=== PATIENT | female | born 1975 | race Caucasian/White ===

== ENCOUNTER 2019-03-03 13:45 | Inpatient (IN) ==
[2019-03-03] MEDS ORDERED: MORPHINE IV ONE (14:40)
[2019-03-03] MEDS ORDERED: ZOFRAN IV ONE (14:41)
[2019-03-03 15:16] LABS: BASO# 0.02 X1000 (0.0-0.2); BASO% 0.1 % (0.0-0.8); EOS# 0.07 X1000 (0.0-0.7); EOS% 0.5 % (0.0-10.0); HEMATOCRIT 45.3 % (37.0-47.0); HEMOGLOBIN 15.6 g/dL (12.0-16.0); IMM GRAN# 0.03 X1000 (0.0-0.04); IMM GRAN% 0.2 % (0.0-0.5); LYMPH# 1.48 X1000 (1.2-3.4); LYMPH% 10.4 % (20.5-51.1); MCH 30.1 PG (27-31); MCHC 34.4 g/dL (33-37); MCV 87.5 FL (81-99); MONO# 0.83 X1000 (0.11-0.59); MONO% 5.8 % (1.7-9.3); MPV 8.7 FL (7.4-10.4); NEUT# 11.85 X1000 (1.4-6.5); PLT 336 X1000 (130-400); RBC 5.18 XMIL (4.2-5.4); RDW 11.9 % (11.5-14.5); WBC 14.28 X1000 (4.8-10.8)
[2019-03-03 15:18] LABS: AGAP 12; ALB/GLOB RATIO 1.6; ALBUMIN 4.8 g/dL (3.5-5.0); ALKALINE PHOSPHATASE 54 U/L (32-104); AMYLASE 94 U/L (20-200); BUN 9 mg/dL (8-22); CALCIUM 9.7 mg/dL (8.8-10.2); CHLORIDE 95 mmol/L (98-107); COSMO 265; CREATININE 0.8 mg/dL (0.5-0.9); ESTIMATED GFR > 60; GLUCOSE 106 mg/dL (70-104); GOT 19 U/L (10-30); GPT 10 U/L (10-36); LIPASE 27 U/L (13-60); POTASSIUM 3.8 mmol/L (3.5-5.1); SODIUM 133 mmol/L (136-145); TCO2 26 mmol/L (25-35); TOTAL BILIRUBIN 0.58 mg/dL (0.20-1.00); TOTAL PROTEIN 7.8 g/dL (6.3-8.3)
--- NOTE | 2019-03-03 15:41 | EKG Report ---
Test Performed on : 03/03/2019 3:07:46 PM Test Reason : AO Blood Pressure : / mmHG Vent. Rate : 067 BPM Atrial Rate : 067 BPM P-R Int : 152 ms QRS Dur : 082 ms QT Int : 408 ms P-R-T Axes : -07 078 060 degrees QTc Int : 431 ms Normal sinus rhythm. T wave abnormality, consider anterior ischemia Abnormal ECG No previous ECGs available Unconfirmed Result
--- NOTE | 2019-03-03 15:48 | Diag Imaging Result Doc PS360 ---
EXAM: FLAT/UPRIGHT ABD/1 VIEW CHEST HISTORY: LLQ abd pain TECHNIQUE: Flat and upright with chest, three views COMPARISON: None. FINDINGS: The lungs are well expanded. No cardiomegaly. No pneumonia. No free air beneath the diaphragm. There are air distended loops of small bowel in the mid abdomen. Stool is found in the colon. There are surgical clips overlying the right sacrum and in the right upper quadrant. There are multiple pelvic phleboliths. IMPRESSION: Early or partial small bowel obstruction. Electronically signed by Crispin Georges 03/03/2019 3:46 PM
[2019-03-03] MEDS ORDERED: NS 1,000 ML IV ONE (16:00)
[2019-03-03] MEDS ORDERED: ZOSYN 4.5 GM in NS 100 ML IV ONE (16:12)
--- NOTE | 2019-03-03 16:35 | Diag Imaging Result Doc PS360 ---
EXAM: CT ABD/PELVIS W/IV CONT ONLY HISTORY: partial SBO, abdominal pain TECHNIQUE: CT abdomen and pelvis with intravenous contrast COMPARISON: None. FINDINGS: No calcified gallstones. There is fatty infiltration of the liver and there are several scattered tiny cysts. A tiny amount of fluid is found about the liver with a small amount of the right paracolic gutter. There is also small amount of fluid about the spleen. Spleen is normal. Normal pancreas, adrenal glands, and kidneys. No hydronephrosis. Normal aorta. There are several air and fluid overly distended loops of small bowel in the mid and lower left abdomen. There is wall thickening to several of the distal distended bowel loops. Transition appears to be in the mid pelvis near sutures. Air and stool is found throughout the colon. There is free fluid in the pelvis. No abscess. Urinary bladder is not distended. The uterus is been removed. There are scattered pelvic phleboliths. IMPRESSION: Small bowel obstruction with enteritis with the transition appearing to be near sutures in the mid pelvis. This exam was performed using automated exposure control, adjustment of mA or kV according to patient size, and/or use of iterative reconstruction technique. Electronically signed by Crispin Georges 03/03/2019 4:33 PM
[2019-03-03] MEDS ORDERED: LEVAQUIN 500 MG in NS 100 ML IV SCH (18:15)
[2019-03-03] MEDS: DILAUDID IV PRN ×2 (18:20→21:23)
[2019-03-03 18:38] LABS: URINE SOURCE CATH
[2019-03-03 18:48] LABS: BILIRUBIN URINE NEGATIVE (NEGATIVE); BLOOD URINE NEGATIVE (NEGATIVE); COLOR YELLOW; GLUCOSE URINE NEGATIVE (NEGATIVE); LEUKOCYTES URINE NEGATIVE (NEGATIVE); NITRITE URINE NEGATIVE (NEGATIVE); PROTEIN URINE TRACE mg/dL (NEGATIVE); TURBIDITY URINE CLEAR (CLEAR); UROBILINOGEN URINE NORMAL (NORMAL)
[2019-03-03 18:55] LABS: KETONE URINE 20 mg/dL (NEGATIVE); UR EPITHELIAL CELLS <10 /HPF (<10); URINE BACTERIA NEGATIVE /HPF; URINE RBC <10 /HPF (<10); URINE WBC <10 /HPF (<10)
--- NOTE | 2019-03-03 18:58 | Diag Imaging Result Doc PS360 ---
EXAM: CHEST/ABD TUBE PLACEMENT HISTORY: ng tube placement TECHNIQUE: Chest abdomen single view COMPARISON: 3:36 PM FINDINGS: A nasogastric tube has been placed since the prior study. This overlies the esophagus and stomach. Electronically signed by Crispin Georges 03/03/2019 6:56 PM
--- NOTE | 2019-03-03 19:11 | HISTORY AND PHYSICAL ---
CHIEF COMPLAINT: Left lower quadrant pain with nausea and vomiting. HISTORY OF PRESENT ILLNESS: This is a 43-year-old female with a history of prior abdominal surgeries, who presents to the emergency room complaining of about 24 hours of left lower quadrant pain with nausea, vomiting and headache. She states that symptoms have increased over this time. She has found no alleviating factors. She states that everything exacerbates it. She rates her pain as a cramping-type pain. She rates it at 10/10 at its worst. She denies any black or bloody vomitus or stools. PAST MEDICAL HISTORY: Denies. PAST SURGICAL HISTORY: Appendectomy, hysterectomy, tonsillectomy, lysis of adhesions. SOCIAL HISTORY: She smokes 1 or 2 cigarettes a day. She denies any illicit drug use. She does drink alcohol occasionally on a social basis. ALLERGIES: No known drug allergies. HOME MEDICATIONS: 1. Estradiol 2 mg 1 p.o. daily. 2. Ambien 12.5 at bedtime p.r.n. REVIEW OF SYSTEMS: Discussed with the patient, with pertinent positives stated in the HPI. She denied any syncope, dizziness, chest pain, palpitations, any shortness of breath, any black or bloody vomitus or stools, hematuria, dysuria, frequency or urgency. PHYSICAL EXAMINATION: GENERAL: This is a 43-year-old female who is lying in the bed in mild distress. VITAL SIGNS: Heart rate is 91, respirations are 20, O2 saturations are 99% with temperature 97.8 degrees oral. EYES: Pupils are equal, round, react to light. EOMs are intact. Sclerae anicteric. HEENT: Head is normocephalic, atraumatic. Mucous membranes are dry. NECK: Supple. Trachea midline. CARDIOVASCULAR: Regular rate and rhythm. S1 and S2 appreciated. She has no lower extremity edema. PULMONARY: Breath sounds are clear, with no increased work of breathing noted. GASTROINTESTINAL: Abdomen is soft. Tender to palpation generally, with worse in left lower quadrant and suprapubic area. She does have bowel sounds in all 4 quadrants. SKIN: Warm and dry. NEUROLOGIC: She is alert and oriented. LABORATORY DATA: WBC is 14.2 with a hemoglobin of 15.6, hematocrit 45.3, platelets 336,000. Sodium 133, potassium 3.8, BUN 9, creatinine 0.8 with glucose of 106. Catheterized urine is pending. DIAGNOSTIC DATA: CT of the abdomen and pelvis revealed small-bowel obstruction with enteritis, with a transition appearing to be near sutures in the mid pelvis. ASSESSMENT AND PLAN: 1. Small-bowel obstruction. Nasogastric tube to low intermittent wall suction. she will remain NPO. flat and upright in the morning. Dr. Mateo Amos in General Surgery has been consulted. 2. Enteritis. Flagyl 500 mg intravenously q.6 hours as well as Levaquin 500 q.24. 3. Leukocytosis. Antibiotics as stated above. 4. Hyponatremia. Sodium is 133. Continue intravenous hydration and recheck labs in the morning. 5. Abdominal pain. Dilaudid 1 mg q. 3 hours p.r.n. and assess. 6. Nausea. Zofran. 7. For gastrointestinal prophylaxis, Protonix 40 mg intravenously q.12 hours. 8. For deep venous thrombosis prophylaxis, sequential compression devices. Further treatments pending hospital course. Dictated by CRISTHIAN Church for Venessa Zhu MD cc: CRISTHIAN Church MD I performed a face to face encounter on the patient. I reviewed all labs and imaging on the patient. I agree with the H&P as dictated. presented to the ER with a chief complaint of persistent colicky abdominal pain associated with nausea and vomiting. A CT of the abdomen and pelvis was done that revealed a small bowel obstruction. On exam, the patient has hypoactive bowel sounds with diffuse tenderness in all quadrants. The patient has been seen by in the ER already. Will admit the patient and start NG tube decompression. Will start IV fluid hydration, antiemetics and pain medication. Further plans to be determined by the general surgeon. MANDY
--- NOTE | 2019-03-03 19:55 | GENERAL SURGERY CONSULTATION ---
DATE: 03/03/2019 REQUESTING PHYSICIAN: Venessa Zhu MD. REASON FOR CONSULTATION: Small-bowel obstruction. HISTORY OF PRESENT ILLNESS: A 43-year-old female who initially presented with left lower quadrant pain with nausea, vomiting, and headache starting yesterday. Upon further questioning, she has had issues with her bowels moving for some time and has had previous colonoscopy that did not show anything obvious. She has had issues with chronic constipation and abdominal pain for some time. She says it all kind of started after she had a hysterectomy in [place] and then developed a small-bowel obstruction and subsequently has had lysis of adhesions after that. Again, she is coming in with a less than a 24-hour history of [id number] pain. She had a CT scan that showed thickened bowel and a bowel obstruction, and I was asked to weigh an opinion. PAST MEDICAL HISTORY: None. PAST SURGICAL HISTORY: Includes appendectomy, hysterectomy, tonsillectomy. HOME MEDICATIONS: Include estrogen and portion of Ambien. FAMILY HISTORY: Reviewed with the patient and no family history of Crohn's or ulcerative colitis. SOCIAL HISTORY: Current smoker. Does occasional alcohol. ALLERGIES: None. REVIEW OF SYSTEMS: A full 10-point review of systems obtained and negative other than as specified in HPI. PHYSICAL EXAMINATION: Vital Signs: The patient is currently afebrile. Most recent temperature is 98 degrees, blood pressure 158/105, pulse 76. General: Appears uncomfortable. female looks stated age. HEENT: Normocephalic, atraumatic. Pupils equal, round, reactive to light. Mucous membranes moist. Oropharynx benign. Neck: Supple. Trachea midline. Cardiovascular: Regular rate and rhythm. Lungs: Grossly clear. Abdomen: Soft. Some discomfort down in the left lower quadrant but no peritoneal signs at this time. The abdomen is nondistended. Extremities: Moves all extremities. Neurologic: Grossly intact. Skin: No signs of jaundice. Vascular: All extremities perfused. LABORATORY: White blood cell count is 14 with a left shift. Hematocrit and platelet count are normal. Sodium is 133. Remainder of labs reviewed. IMAGING STUDIES: CT scan independently reviewed and radiology report reviewed. She does have what appears to be a small-bowel obstruction. The transition point down the pelvis may be near a suture line. ASSESSMENT AND PLAN: A 43-year-old female with bowel obstruction. Bowel obstruction. At this time, could be related to adhesions versus suture line down in the pelvis. She does give a history of having recurrent bowel obstructions that maybe had not gotten to the point where she needed admission. Agree right now with NG tube, decompression, and bowel rest. She may ultimately require diagnostic laparoscopy versus exploratory laparotomy, given the findings and her chronic symptoms. We will try to get her through the evening. The hospitalists are going to admit. cc: Bulmaro Amos MD
[2019-03-03] MEDS: FLAGYL 500 MG/NS 500 MG/100 ML IVPB IV SCH (20:11)
[2019-03-03] MEDS: NS 1,000 ML IV SCH (20:11)
[2019-03-03] MEDS: ZOFRAN IV PRN (21:32)
[2019-03-03] MEDS: LEVAQUIN 500 MG/D5W 500 MG/100 ML IVPB IV SCH (21:53)
--- NOTE | 2019-03-04 00:41 | PROVIDER DOCUMENTATION ---
This chart was entered by Helen Shi Scribe, acting as scribe for Ana María Blakely MD. HPI-Abdominal Pain/GI Problem - General Chief Complaint: Abdominal Pain Stated Complaint: GASTRO PAIN Time Seen by Provider: 03/03/19 14:30 Source: patient Allergies/Adverse Reactions: Patient Allergies Allergy/AdvReac Type Severity Reaction Status Date / Time No Known Allergies Allergy Verified 03/03/19 14:50 Home Medications: Home Medication List Medication Instructions Recorded Confirmed Last Taken Type Estradiol 2 mg PO QHS 03/03/19 03/03/19 03/02/19 History Zolpidem Tartrate [Zolpidem 3.1 mg PO QHS 03/03/19 03/03/19 03/02/19 History Tartrate ER] - History of Present Illness-ABD Nature of Presenting Problems: Patient is a 43 year old female who presents for LLQ and epigastric abdominal pain with nausea and vomiting that has been present since yesterday. Report last bowel movement was yesterday. Does not report diarrhea or fever. Abdominal Pain Onset Location: reports: LLQ, epigastric Pain Radiation: reports: no radiation Quality of Pain: reports: aching Severity in ED: reports: moderate, severe Onset/Duration: reports: 24 hours ago Timing: reports: still present Activities at Onset: reports: light activity Modifying Factors: improves with: nothing Associated Symptoms: reports: nausea, vomiting Last BM: 24 hours ago Dark Stools Present?: reports: none noticed Rectal Bleeding: reports: none Rectal Pain: reports: none Bruising or Bleeding Gums?: No Similar Symptoms Previously?: Yes (present since yesterday) Recently seen or treated by another doctor?: No Review of Systems - Adult - REVIEW OF SYSTEMS - ADULT Constitutional: reports: no symptoms reported. denies: chills, fever, fatique Eyes: reports: no symptoms reported Ears, Nose, Mouth & Throat: reports: no symptoms reported Cardiovascular: reports: no symptoms reported Respiratory: reports: no symptoms reported Gastrointestinal: reports: see HPI, abdominal pain (LLQ and epigastric), nausea, vomiting. denies: diarrhea Genitourinary: reports: no symptoms reported Musculoskeletal: reports: no symptoms reported. denies: back pain, muscle aches, neck pain Integumentary: reports: no symptoms reported Neurological: reports: no symptoms reported Psychiatric: reports: no symptoms reported Endocrine: reports: no symptoms reported Hematologic/Lymphatic: reports: no symptoms reported Allergic/Immunologic: reports: no symptoms reported All Other Systems: Reviewed and Negative Past History - Adult - PAST MEDICAL HISTORY-ADULT Review of Records: reports: Nursing Assessment Review, Medications Reviewed, Social history reviewed & non-contributory. Major Childhood Illnesses: reports: denies history Cardiovascular: reports: denies history Respiratory: reports: denies history Gastrointestinal: reports: denies history Obstetrical/Gynecological: reports: denies history Genitourinary: reports: denies history Musculoskeletal: reports: denies history Neurological: reports: denies history Endocrine/Immune: reports: denies history Other Conditions: reports: denies history - PRIOR SURGERIES/PROCEDURES Surgical/Procedure History: reports: appendectomy, hysterectomy, tonsillectomy - IMMUNIZATION STATUS Childhood Immunizations: See Nurse Assessment Flu Vaccine: See Nurse Assessment - FAMILY HISTORY Family History: reviewed, not pertinent - SOCIAL HISTORY Smoking: cigarettes, less than 1 pack/day Provider spent 3-5 mins advising pt. on dangers of tobacco.: Discussed manners to quit use, and f/u contacts for add'l counseling. Substance Use: alcohol Alcohol Use Frequency: occasionally Physical Exam-General - PHYSICAL EXAM-ADULT Initial Vital Signs Reviewed: Yes - CONSTITUTIONAL General Appearance: alert, mild distress, other (lying on the left side). negative: lethargic, slow to respond - EYES Eyes: PERRL/EOMI - HEAD, EARS, NOSE, MOUTH & THROAT HENMT: moist mucous membranes, normal ENT inspection. negative: angioedema, hearing deficit - NECK Neck: non-tender, full range of motion, supple - RESPIRATORY Respiratory: chest non-tender, lungs clear, normal breath sounds. negative: crackles, rhonchi - CARDIOVASCULAR Cardiovascular: normal peripheral pulses, regular rate, rhythm. negative: tac hycardia, systolic murmur - GASTROINTESTINAL (ABDOMEN) Abdominal Exam: normal bowel sounds, guarding (mild), tenderness (LLQ). negative: rebound - MUSCULOSKELETAL Back Exam: no CVA tenderness, no vertebral tenderness Extremity: non-tender, normal inspection. negative: deformity, erythema, swelling - SKIN Integumentary: normal color, normal turgor, warm/dry. negative: cyanosis, ecchymosis, erythema, jaundice - NEUROLOGIC Neurologic: grossly normal. negative: aphasia, facial droop - PSYCHIATRIC Psych/Mental Status: oriented x 3. negative: paranoid Progress - PLAN OF CARE/RESULTS Progress/Plan/Lab Results: Vital Signs - 8 hr 03/03/19 13:51 Temperature 97.8 F Pulse Rate 91 H Respiratory Rate 20 O2 Sat by Pulse Oximetry 99 Orders Category Date Time Status NPO Diet 03/04/19 00:01 Active FLAT/UPRIGHT ABD/1 VIEW CHEST [RAD] Stat Exams 03/03/19 14:42 Ordered AMYLASE [CHEM] Stat Lab 03/03/19 14:41 Uncollected CBC WITH ELECTRONIC DIFF [HEME] Stat Lab 03/03/19 14:41 Uncollected CMP [COMPREHENSIVE METABOLIC PANEL] [CHEM] Stat Lab 03/03/19 14:41 Uncollected LIPASE [CHEM] Stat Lab 03/03/19 14:41 Uncollected Morphine Med 03/03/19 14:40 Discontinued 6 mg IV NOW ONE Ondansetron [Zofran] Med 03/03/19 14:41 Discontinued 8 mg IV NOW ONE EKG [EKG] Stat Ther 03/03/19 14:43 Ordered Result Diagrams: 03/03/19 14:57 03/03/19 14:57 - REASSESSMENT Reassessment #1 Time Reassessed: 16:40 Status: improving (feel better, less abd oain and nausea. abdomina exam slight tenderness LLQ) - EKG 1 Time of EKG reading by physician:: 15:07 EKG Read and Signed by:: Ana María Salas EKG Interpretation (*Must complete 3 of following elements*): Abnormal Rate: 67 Rhythm: normal sinus rhythm FL Interval: normal Comments: T wave abnormality, consider anterior ischemia - XRAY 1 XRAY Study: Chest, Abdomen Impression: See EMR Report ( EXAM: FLAT/UPRIGHT ABD/1 VIEW CHEST HISTORY: LLQ abd pain TECHNIQUE: Flat and upright with chest, three views COMPARISON: None. FINDINGS: The lungs are well expanded. No cardiomegaly. No pneumonia. No free air beneath the diaphragm. There are air distended loops of small bowel in the mid abdomen. Stool is found in the colon. There are surgical clips overlying the right sacrum and in the right upper quadrant. There are multiple pelvic phleboliths. IMPRESSION: Early or partial small bowel obstruction. Electronically signed by Crispin Georges 03/03/2019 3:46 PM 03/03/19 1546 Interpreting Physician: Crispin Georges MD Dictated Date/Time: 03/03/19 1540 cc: Ana María Salas MD; Lázaro Roth MD) - CT/MRI 1 CT Study: Abdomen ( FINDINGS: No calcified gallstones. There is fatty infiltrat ion of the liver and there are several scattered tiny cysts. A tiny amount of fluid is found about the liver with a small amount of the right paracolic gutter. There is also small amount of fluid about the spleen. Spleen is normal. Normal pancreas, adrenal glands, and kidneys. No hydronephrosis. Normal aorta. There are several air and fluid overly distended loops of small bowel in the mid and lower left abdomen. There is wall thickening to several of the distal distended bowel loops. Transition appears to be in the mid pelvis near sutures. Air and stool is found throughout the colon. There is free fluid in the pelvis. No abscess. Urinary bladder is not distended. The uterus is been removed. There are scattered pelvic phleboliths. IMPRESSION: Small bowel obstruction with enteritis with the transition appearing to be near sutures in the mid pelvis.) - CONSULTS/PCP/HOSPITALIST Notification #1 *Consult/PCP/Hospitalist*: Dr. Amos Time Discussed: 16:55 Consult Disposition: Admit (NGT suction, fluid and admit to hospitalist.) #2 Consult: GINETTE Bernabe admitting for Dr. Crowe Time Discussed: 16:57 Consult Disposition: Admit (Hx , PE and patient care disucssed, accepted.) Departure - Departure Date of Disposition Decision: 03/03/19 Time of Disposition Decision: 16:57 DIAGNOSIS: Small bowel obstruction, Enteritis Disposition: ADMITTED INPATIENT 09 Certified Medical Emergency: Emergent Condition: Serious - Critical Care Note This patient required my direct & personal management of CC.: No Attestation - Physician/ ANDI Attestation Patient care was provided by Advanced Practice Provider:: No The physician spent face to face time with patient:: Yes Advanced Practice Provider documentation review:: Supervising physician onsite and consulted in the evaluation and care of this patient. The physician did have a face to face encounter with the patient. This chart was documented by the indicated herlinda, (Helen Shi, Herlinda) and accurately reflects the services I performed and decisions made by me, Ana María Blakely MD, as attested by the provider's signature.
[2019-03-04] MEDS: DILAUDID IV PRN ×7 (01:09→23:34)
[2019-03-04] MEDS: ZOFRAN IV PRN ×5 (01:09→20:26)
[2019-03-04] MEDS: FLAGYL 500 MG/NS 500 MG/100 ML IVPB IV SCH ×4 (02:25→20:26)
[2019-03-04] MEDS: PROTONIX IV SCH ×2 (06:07→18:23)
[2019-03-04 06:54] LABS: HEMATOCRIT 38.2 % (37.0-47.0); HEMOGLOBIN 12.6 g/dL (12.0-16.0); MCH 30.4 PG (27-31); MPV 8.7 FL (7.4-10.4); RBC 4.15 XMIL (4.2-5.4); RDW 12.2 % (11.5-14.5); WBC 9.31 X1000 (4.8-10.8)
[2019-03-04 07:19] LABS: AGAP 12; ALB/GLOB RATIO 1.7; ALBUMIN 3.9 g/dL (3.5-5.0); ALKALINE PHOSPHATASE 43 U/L (32-104); BUN 11 mg/dL (8-22); CALCIUM 8.2 mg/dL (8.8-10.2); CHLORIDE 107 mmol/L (98-107); COSMO 284; CREATININE 0.8 mg/dL (0.5-0.9); ESTIMATED GFR > 60; GLUCOSE 97 mg/dL (70-104); GOT 14 U/L (10-30); GPT 9 U/L (10-36); PHOSPHORUS 3.6 mg/dL (2.7-4.5); POTASSIUM 3.7 mmol/L (3.5-5.1); SODIUM 143 mmol/L (136-145); TCO2 24 mmol/L (25-35); TOTAL BILIRUBIN 0.53 mg/dL (0.20-1.00); TOTAL PROTEIN 6.2 g/dL (6.3-8.3)
--- NOTE | 2019-03-04 07:23 | GENERAL SURGERY PROGRESS NOTE ---
DATE: 03/04/2019 SUBJECTIVE: Patient is still having some discomfort. She wants to proceed with surgery. She has had issues with this in the past. OBJECTIVE: Vital Signs: Patient is currently afebrile. Her vital signs stable. General: No acute distress. HEENT: Normocephalic, atraumatic. Pupils equal, round, reactive to light. Mucous membranes moist. Oropharynx benign. Neck: Supple. Trachea midline. Cardiovascular: Regular rate and rhythm. Lungs: Grossly clear. Abdomen: Soft. Some tenderness to palpation in bilateral lower quadrants. Extremities: Moves all extremities. Neurologic: Grossly intact. Skin: No signs of jaundice. Vascular: All extremities perfused. LABORATORY: None this morning as of yet. ASSESSMENT AND PLAN: A 43-year-old female with recurrent bowel obstruction. Recurrent bowel obstruction. At this time, she has a history of having bowel obstructions that have not been enough to get her admitted, but she has had issues with it, she has had pain. I reviewed the CT scan with the radiologist and there appears to be a foreign body, may be a suture line or a staple line that might be causing the obstruction. I do not think this is going to improve on its own. There is some concern about the thickness and inflammation of the bowel. We will plan on surgical intervention. The patient wants to go with the route of surgery. Discussed with her the risks, benefits, alternatives. Risks including, but not limited to, bleeding, infection, risk of anesthesia, risk of injury to bowel and other structures. She voiced understanding. Also discussed that when we do an operation for bowel obstructions for adhesions that she is likely to form adhesions afterwards. She voiced understanding with this. We will plan on doing this surgery this afternoon. cc: Bulmaro Amos MD
--- NOTE | 2019-03-04 07:41 | Diag Imaging Result Doc PS360 ---
EXAM: ABDOMEN FLAT/UPRIGHT HISTORY: small bowel obstruction TECHNIQUE: Flat and upright, two views COMPARISON: 03/03/2019 FINDINGS: The lungs are well expanded and clear. A nasogastric tube overlies the esophagus and stomach. No free air beneath the diaphragm. There are air distended small bowel loops in the left abdomen which remain. Stool is found in the proximal colon. No organomegaly. There are surgical clips in the right pelvis. There are several pelvic phleboliths. IMPRESSION: Persistent small bowel obstruction. Electronically signed by Crispin Georges 03/04/2019 7:38 AM
[2019-03-04] MEDS ORDERED: SENSORCAINE-MPF 0.5%/EPI 1:200,000 ONE (12:32)
[2019-03-04] MEDS ORDERED: LR 1,000 ML ONE (12:32)
[2019-03-04] MEDS ORDERED: DIPRIVAN 1% ONE (12:34)
[2019-03-04] MEDS ORDERED: XYLOCAINE-MPF 2% ONE (13:02)
[2019-03-04] MEDS ORDERED: QUELICIN (DOSE) ONE (13:02)
[2019-03-04] MEDS ORDERED: ZEMURON ONE (13:02)
[2019-03-04] MEDS ORDERED: TORADOL ONE (13:16)
[2019-03-04] MEDS ORDERED: ZOFRAN ONE (13:16)
[2019-03-04] MEDS ORDERED: DECADRON ONE (13:16)
[2019-03-04 13:52] LABS: URINE SOURCE CATH
[2019-03-04] MEDS ORDERED: EXPAREL 1.3% ONE (13:56)
[2019-03-04] MEDS ORDERED: MARCAINE 0.25% ONE (13:56)
[2019-03-04] MEDS ORDERED: OFIRMEV 1000 MG/ISOTONIC SOLN 1,000 MG/100 ML BOTTLE ONE (14:00)
[2019-03-04 14:02] LABS: BILIRUBIN URINE NEGATIVE (NEGATIVE); BLOOD URINE TRACE (NEGATIVE); COLOR YELLOW; GLUCOSE URINE NEGATIVE (NEGATIVE); KETONE URINE 100 mg/dL (NEGATIVE); LEUKOCYTES URINE NEGATIVE (NEGATIVE); NITRITE URINE NEGATIVE (NEGATIVE); PH URINE 5.5; PROTEIN URINE TRACE mg/dL (NEGATIVE); SP GRAVITY URINE 1.027; TURBIDITY URINE CLEAR (CLEAR); UR EPITHELIAL CELLS <10 /HPF (<10); URINE BACTERIA NEGATIVE /HPF; URINE RBC <10 /HPF (<10); URINE WBC <10 /HPF (<10); UROBILINOGEN URINE NORMAL (NORMAL)
[2019-03-04] MEDS: DILAUDID ONE ×3 (14:32→14:47)
--- NOTE | 2019-03-04 14:49 | OPERATIVE NOTE ---
PROCEDURE DATE: 03/04/2019 PREOPERATIVE DIAGNOSIS: Small-bowel obstruction. POSTOPERATIVE DIAGNOSIS: Small-bowel obstruction. PROCEDURE PERFORMED: 1. Diagnostic laparoscopy converted to exploratory laparotomy. 2. Lysis of adhesions. SURGEON: Bulmaro Amos MD. BUSINESS ACCOUNT MANAGER: Dr. Weber. Dr. Weber assisted with the entirety of the case. His presence was crucial to completion of the case. ANESTHESIA: General endotracheal. INTRAOPERATIVE FINDINGS: Adhesion noted from previous surgeries with adhesion up to the abdominal wall and an area of fibrotic band across the bowel causing an obstruction and transition point. COMPLICATIONS: None at the time of this dictation. ESTIMATED BLOOD LOSS: 20 mL. SPECIMENS REMOVED: None. BRIEF HISTORY: A 43-year-old female presenting with a bowel obstruction. She had thickened bowel, concerning for an enteritis-like picture. It was felt that she would benefit from an exploratory laparotomy and diagnostic laparoscopy. The risks, benefits, and alternatives were discussed. All questions were answered. DESCRIPTION OF PROCEDURE: After informed consent was obtained, the patient was brought to the operative theatre, transferred to the operating table, and placed in the supine position. General endotracheal anesthesia was then performed without complication. A formal time-out was then performed, confirming patient, date, and procedure. All were in agreement. At that time, attention was given to the abdomen. We placed our first trocar supraumbilically. Using the Optiview technique, we inserted a 5 mm trocar. We then placed two 5 mm trocars 10 cm lateral to this, just above the level of the umbilicus. Upon entering the abdomen, we found a bowel obstruction. There was also an adhesion noted to the abdominal wall, which we took down sharply. We ran the small bowel from the ligament of Treitz to the ileocecal valve. There was an area that looked somewhat questionable in the abdomen. To be able to get a better view of how it felt, we decided to make a midline incision. We therefore converted to an exploratory laparotomy and made a midline incision, eviscerated the bowel, ran it again from the ileocecal valve to the ligament of Treitz. We found an area just where we took down the adhesion that had a fibrotic band, which we removed. We were able to milk the succus through this area without any difficulty, but this was a transition point. We saw no other pathology. There were no intraluminal masses that we could appreciate. We then irrigated out the abdomen, closed it with the peritoneum with chromic and the fascia with a running loop PDS. We then closed the skin with 4-0 Monocryl. The patient tolerated the procedure well and was transferred back to the recovery room. It should be noted that we confirmed the NG tube in the stomach. cc: Bulmaro Amos MD
[2019-03-04] MEDS: SODIUM CHLORIDE 0.9% INJ SCH (18:23)
[2019-03-04] MEDS: NS 1,000 ML IV SCH (18:23)
--- NOTE | 2019-03-04 19:59 | PROGRESS NOTE ---
DATE: 03/04/2019 SUBJECTIVE: The patient is resting comfortably in bed. She complains of abdominal pain. OBJECTIVE: Vital Signs: Temperature 98.6, blood pressure 121/68, heart rate 81, respirations 18, O2 saturation 96% on room air. General: This is a middle-aged female, lying in bed in no acute distress. Heart: S1, S2 normal. Regular rate and rhythm. Lungs: Equal air entry bilaterally. No crackles. No rales. Abdomen: Positive bowel sounds. Soft, nontender, nondistended. Extremities: No edema, no cyanosis. Neurologic: The patient is alert and oriented x4. LABS: Reviewed. ASSESSMENT AND PLAN: 1. Status post diagnostic laparoscopy converted to an exploratory laparotomy with lysis of adhesions. Management as per the general surgeon. 2. Gastrointestinal prophylaxis. Continue on IV Protonix. 3. Deep vein thrombosis prophylaxis. Continue with sequential compression devices. cc: Venessa Zhu MD
[2019-03-04] MEDS: LEVAQUIN 500 MG/D5W 500 MG/100 ML IVPB IV SCH (22:19)
[2019-03-05] MEDS: FLAGYL 500 MG/NS 500 MG/100 ML IVPB IV SCH ×4 (01:47→19:29)
[2019-03-05] MEDS: NS 1,000 ML IV SCH ×2 (01:48→16:10)
[2019-03-05] MEDS: DILAUDID IV PRN ×7 (02:26→22:35)
[2019-03-05] MEDS: PROTONIX IV SCH ×2 (06:02→22:51)
[2019-03-05] MEDS: SODIUM CHLORIDE 0.9% INJ SCH (06:02)
[2019-03-05 07:02] LABS: HEMATOCRIT 32.9 % (37.0-47.0); HEMOGLOBIN 10.8 g/dL (12.0-16.0); MCH 30.7 PG (27-31); MCHC 32.8 g/dL (33-37); MCV 93.5 FL (81-99); MPV 8.9 FL (7.4-10.4); RBC 3.52 XMIL (4.2-5.4); WBC 9.32 X1000 (4.8-10.8)
[2019-03-05 08:05] LABS: AGAP 11; ALBUMIN 3.6 g/dL (3.5-5.0); ALKALINE PHOSPHATASE 37 U/L (32-104); BUN 10 mg/dL (8-22); CALCIUM 7.8 mg/dL (8.8-10.2); CHLORIDE 107 mmol/L (98-107); COSMO 278; CREATININE 0.7 mg/dL (0.5-0.9); ESTIMATED GFR > 60; GLUCOSE 87 mg/dL (70-104); GOT 14 U/L (10-30); GPT 8 U/L (10-36); POTASSIUM 4.1 mmol/L (3.5-5.1); SODIUM 140 mmol/L (136-145); TCO2 22 mmol/L (25-35); TOTAL BILIRUBIN 0.44 mg/dL (0.20-1.00); TOTAL PROTEIN 5.4 g/dL (6.3-8.3)
--- NOTE | 2019-03-05 08:49 | GENERAL SURGERY PROGRESS NOTE ---
DATE: 03/05/2019 SUBJECTIVE: The patient seems to be doing okay. OBJECTIVE: Vital Signs: The patient is currently afebrile. Her vital signs are stable. General: No acute distress. Cardiovascular: Regular rate and rhythm. Lungs: Grossly clear. Abdomen: Soft, appropriately tender. Dressing in place. ASSESSMENT AND PLAN: A 43-year-old female, currently postoperative day #1 from exploratory laparotomy with lysis of adhesions for bowel obstruction. Postoperative state. At this time, the patient seems to be doing okay. Will remove her Taylor catheter and NG tube, and put her on sips of clears. Will see how she does. Otherwise, continue current treatment. Make sure she has sequential compression devices and heparin. cc: Bulmaro Amos MD
--- NOTE | 2019-03-05 12:21 | PROGRESS NOTE ---
DATE: 03/05/2019 SUBJECTIVE: The patient states that she feels a lot better this morning. She states the abdominal pain has improved. She denies having any nausea or vomiting. OBJECTIVE: Vital Signs: Temperature 98.4 degrees blood pressure 113/58, heart rate 73 respirations 20, and O2 saturations 100% on room air. General: This is a middle-aged female sitting up in bed in no acute distress. Heart: S1, S2 normal. Regular rate and rhythm. Lungs: Equal air entry bilaterally. No crackles. No rales. Abdomen: Positive bowel sounds. Soft, nontender, and nondistended. Extremities: No edema. No cyanosis. Neurologic: The patient is alert and oriented x3. LABORATORY: Reviewed and within normal limits. ASSESSMENT AND PLAN: 1. Status post exploratory laparotomy with lysis of adhesions. Management as per the general surgeon. 2. Gastrointestinal prophylaxis. Continue on IV Protonix. 3. DVT prophylaxis. The patient is on heparin. cc: Venessa Zhu MD MTDD
[2019-03-05] MEDS: HEPARIN SUBQ SCH ×2 (16:09→19:29)
[2019-03-05] MEDS: LEVAQUIN 500 MG/D5W 500 MG/100 ML IVPB IV SCH (22:50)
[2019-03-06] MEDS: HEPARIN SUBQ SCH ×4 (00:19→20:36)
[2019-03-06] MEDS: NS 1,000 ML IV SCH ×5 (02:54→15:38)
[2019-03-06] MEDS: FLAGYL 500 MG/NS 500 MG/100 ML IVPB IV SCH ×5 (02:55→20:35)
[2019-03-06] MEDS: DILAUDID IV PRN (02:55)
[2019-03-06] MEDS: NORCO-10 PO PRN ×4 (05:47→20:35)
[2019-03-06 07:02] LABS: HEMATOCRIT 32.1 % (37.0-47.0); HEMOGLOBIN 10.5 g/dL (12.0-16.0); MCH 30.8 PG (27-31); MCHC 32.7 g/dL (33-37); MCV 94.1 FL (81-99); MPV 8.6 FL (7.4-10.4); RBC 3.41 XMIL (4.2-5.4); RDW 11.9 % (11.5-14.5); WBC 7.47 X1000 (4.8-10.8)
[2019-03-06 07:24] LABS: PHOSPHORUS 2.1 mg/dL (2.7-4.5)
[2019-03-06 07:25] LABS: AGAP 14; ALB/GLOB RATIO 1.7; ALBUMIN 3.5 g/dL (3.5-5.0); ALKALINE PHOSPHATASE 36 U/L (32-104); BUN 10 mg/dL (8-22); CALCIUM 7.8 mg/dL (8.8-10.2); CHLORIDE 105 mmol/L (98-107); COSMO 275; CREATININE 0.6 mg/dL (0.5-0.9); ESTIMATED GFR > 60; GLUCOSE 68 mg/dL (70-104); GOT 16 U/L (10-30); GPT 9 U/L (10-36); POTASSIUM 3.3 mmol/L (3.5-5.1); SODIUM 139 mmol/L (136-145); TCO2 20 mmol/L (25-35); TOTAL BILIRUBIN 0.27 mg/dL (0.20-1.00); TOTAL PROTEIN 5.6 g/dL (6.3-8.3)
[2019-03-06] MEDS ORDERED: POTASSIUM PHOSPHATE 40 MMOL in NS 250 ML IV ONE (07:31)
[2019-03-06] MEDS: PROTONIX IV SCH ×2 (09:35→20:36)
[2019-03-06] MEDS: SODIUM CHLORIDE 0.9% INJ SCH ×2 (09:35→20:36)
[2019-03-06] MEDS: COLACE PO SCH ×2 (10:54→20:36)
--- NOTE | 2019-03-06 11:17 | GENERAL SURGERY PROGRESS NOTE ---
DATE: 03/06/2019 SUBJECTIVE: The patient seems to be doing well. She tolerated her NG tube being out. She says she is passing gas. She is not sick to her stomach. OBJECTIVE: Vital Signs: The patient is currently afebrile. Her vital signs are stable. General: No acute distress. Cardiovascular: Regular rate and rhythm. Lungs: Grossly clear. Abdomen: Soft. Appropriately tender. Some bowel sounds auscultated. ASSESSMENT AND PLAN: A 43-year-old female, currently postoperative day #2 from exploratory laparotomy and lysis of adhesions for bowel obstruction. Postoperative state. At this time, patient seems to be progressing. We will put her on full liquid diet and advance her diet as tolerated. We will change her over to oral pain medicine. Hopefully, she can be discharged here in the near future. cc: Bulmaro Amos MD
--- NOTE | 2019-03-06 14:40 | PROGRESS NOTE ---
DATE: 03/06/2019 SUBJECTIVE: The patient states that she has been up walking. She is passing gas but has not had a bowel movement yet. OBJECTIVE: Vital Signs: Temperature 98.1 degrees, blood pressure 140/80, heart rate 59, respirations 20, O2 saturation 99% on room air. General: This is a middle-aged female lying in bed in no acute distress. Heart: S1, S2 normal. Regular rate and rhythm. Lungs: Clear to auscultation bilaterally. Abdomen: Positive bowel sounds. Soft, nontender, nondistended. Extremities: No edema, no cyanosis. Neurologic: The patient is alert and oriented x3. LABS: Potassium 3.3, calcium 7.8, BUN 10, creatinine 0.6, glucose 68, AST 16, ALT 9, alkaline phosphatase 36, phosphorus 2.1. ASSESSMENT AND PLAN: 1. Status post exploratory laparotomy with lysis of adhesions. The patient is slowly improving. We will start some Colace to help with her bowel movement as well as MiraLAX. General Surgery is following. 2. Hypokalemia. We will replace the patient's potassium. 3. Hypophosphatemia. Will replace the patient's phosphorus. 4. Gastrointestinal prophylaxis. Continue with Protonix. 5. Deep vein thrombosis prophylaxis. Continue on heparin. cc: Venessa Zhu MD MTDD
[2019-03-06] MEDS: ZOFRAN IV PRN (17:40)
[2019-03-06] MEDS: MIRALAX PO SCH (20:36)
[2019-03-06] MEDS: LEVAQUIN 500 MG/D5W 500 MG/100 ML IVPB IV SCH (22:29)
[2019-03-07] MEDS: NORCO-10 PO PRN ×3 (00:44→12:58)
[2019-03-07] MEDS: FLAGYL 500 MG/NS 500 MG/100 ML IVPB IV SCH ×4 (00:45→14:30)
[2019-03-07] MEDS: HEPARIN SUBQ SCH ×2 (04:42→14:29)
[2019-03-07] MEDS: NS 1,000 ML IV SCH ×2 (04:43)
[2019-03-07 06:42] LABS: HEMATOCRIT 28.1 % (37.0-47.0); HEMOGLOBIN 9.5 g/dL (12.0-16.0); MCH 30.7 PG (27-31); MCHC 33.8 g/dL (33-37); MCV 90.9 FL (81-99); MPV 8.6 FL (7.4-10.4); RBC 3.09 XMIL (4.2-5.4); RDW 11.6 % (11.5-14.5); WBC 4.9 X1000 (4.8-10.8)
[2019-03-07 06:58] LABS: AGAP 8; ALB/GLOB RATIO 1.4; ALBUMIN 3.1 g/dL (3.5-5.0); ALKALINE PHOSPHATASE 35 U/L (32-104); BUN 3 mg/dL (8-22); CALCIUM 7.6 mg/dL (8.8-10.2); CHLORIDE 107 mmol/L (98-107); COSMO 278; CREATININE 0.5 mg/dL (0.5-0.9); ESTIMATED GFR > 60; GLUCOSE 94 mg/dL (70-104); GOT 18 U/L (10-30); GPT 11 U/L (10-36); POTASSIUM 3.6 mmol/L (3.5-5.1); SODIUM 141 mmol/L (136-145); TCO2 26 mmol/L (25-35); TOTAL BILIRUBIN 0.19 mg/dL (0.20-1.00); TOTAL PROTEIN 5.3 g/dL (6.3-8.3)
[2019-03-07 08:43] LABS: PHOSPHORUS 2.5 mg/dL (2.7-4.5)
[2019-03-07] MEDS ORDERED: POTASSIUM PHOSPHATE 30 MMOL in NS 250 ML IV ONE (09:02)
[2019-03-07] MEDS: MIRALAX PO SCH (09:33)
[2019-03-07] MEDS: COLACE PO SCH (09:34)
[2019-03-07] MEDS: SODIUM CHLORIDE 0.9% INJ SCH (09:34)
[2019-03-07] MEDS: PROTONIX IV SCH (09:34)
--- NOTE | 2019-03-07 11:37 | Diag Imaging Result Doc PS360 ---
EXAM: ABDOMEN FLAT/UPRIGHT HISTORY: ileus TECHNIQUE: Flat and upright, two views COMPARISON: 03/04/2018 FINDINGS: The bowel loops are not dilated on the current exam. There appear to be free air laterally in the abdomen. No organomegaly. There are several surgical clips in the lower abdomen. Mild scoliosis. IMPRESSION: Free air in the abdomen from recent surgery. Electronically signed by Crispin Georges 03/07/2019 11:34 AM
--- NOTE | 2019-03-07 12:01 | PROGRESS NOTE ---
DATE: 03/07/2019 SUBJECTIVE: The patient states that she has not had a bowel movement yet. She states that she is passing gas. OBJECTIVE: Vital signs: Temperature 98.7, blood pressure 147/88, heart rate 66, respirations 18, O2 saturation is 100% on room air. General: This is a middle-aged female sitting up in bed, in no acute distress. Heart: S1 and S2 normal. Regular rate and rhythm. Lungs: Equal air entry bilaterally. No crackles. No rales. Abdomen: Positive bowel sounds. Soft, nontender and nondistended. Extremities: No edema, no cyanosis. Neurologic: The patient is alert and oriented x4. DIAGNOSTIC DATA: Hemoglobin is 9.5, hematocrit 28, platelets 198. Sodium 141, potassium 3.6, chloride 107, CO2 is 26, BUN is 3, creatinine 0.5, glucose 94. Albumin 3.1. AST is 18, ALT is 11, alkaline phosphatase 35. ASSESSMENT AND PLAN: 1. Status post exploratory laparotomy with lysis of adhesions. Continue to monitor for return of bowel function. The patient is on laxatives. Management as per the general surgeon. 2. GI prophylaxis. Continue on Protonix. 3. DVT prophylaxis. Continue on heparin. 4. The patient has been encouraged to ambulate in the hallway as much as possible. cc: Venessa Zhu MD
--- NOTE | 2019-03-07 13:51 | GENERAL SURGERY PROGRESS NOTE ---
DATE: 03/07/2019 SUBJECTIVE: The patient feels better. She has mild abdominal soreness. No severe pain. No nausea or vomiting. She passed some gas. She is tolerating her diet. OBJECTIVE: She is afebrile. Vital signs are stable. Urine output 4 L.General: She is awake, alert, oriented x4. No acute distress. Gastrointestinal: Soft, nondistended. Minimally tender. Incisions are clean, dry, and intact. She has good bowel sounds. IMAGING: Her abdominal x-ray today shows no obstructive process. There is air throughout the colon. LABORATORY: CBC and basic metabolic profile reviewed and unremarkable. ASSESSMENT/PLAN: 43-year-old female status post exploratory laparotomy and lysis of adhesions for small bowel obstruction. She is much improved. We will discharge her home today. Instructions were given. cc: Rob Nick MD
[2019-03-07 16:04] VITALS: BP 139/83
--- NOTE | 2019-03-11 14:29 | DISCHARGE SUMMARY ---
ADMISSION DATE: 03/03/2019 DISCHARGE DATE: 03/07/2019 FINAL DISCHARGE DIAGNOSIS: Status post exploratory laparotomy with lysis of adhesions secondary to small bowel obstruction. CONSULTATIONS: Surgery consultation with Dr. Amos. PROCEDURES: Diagnostic laparoscopy converted to an exploratory laparotomy with lysis of adhesions performed on 03/04/2019. IMAGING: CT of the abdomen and pelvis performed on 03/03/2019 that revealed a small bowel obstruction with enteritis. HOSPITAL COURSE: Ms. Roa is a 43-year-old female with a history of multiple abdominal surgeries, who presented to the ER with a chief complaint of nausea, vomiting, and abdominal pain. In the ER, a CT of the abdomen and pelvis was done that revealed a small bowel obstruction with enteritis. The patient was admitted to the hospitalist service. The patient was made NPO, and an NG tube was placed to low intermittent suction. General Surgery was also consulted. After assessment by the general surgeon, it was decided that the patient would benefit from surgical intervention. The patient was taken to the OR on 03/04/2019 at which time an exploratory laparotomy was done with lysis of adhesions. The patient did well postoperatively. She was maintained on IV fluids and her electrolytes were replaced. The patient's diet was slowly advanced. The patient continued to improve clinically, and was cleared for discharge home on 03/07/2019. DISCHARGE MEDICATIONS: 1. Colace 100 mg oral twice a day. 2. MiraLAX 17 g oral twice a day. 3. [place] 10/325 one tab oral every 6 hours p.r.n. for pain. DISCHARGE DIET: GI soft diet. ACTIVITY: As tolerated. FOLLOWUP INSTRUCTIONS: The patient has been advised to follow up with Dr. Amos within 1 week. cc: Venessa Zhu MD
== END 2019-03-07 17:27 | disposition home or self-care (01) | DRG 336 ==
LOC: ED 13:45 → 4N 13:46
PROVIDERS: ATTEND Internal Medicine
CPT/HCPCS: 74000; 74018; 74019; 74020; 74022; 74177; 80053; 81001; 82150; 83605; 83690; 83735; 84100; 84484; 85025; 85027; 87040; 93005; 94761; 94799; 96361; 96365; 96375; 99285; A9270; C9113; C9290; J0131; J0330; J1100; J1170; J1644; J1885; J1956; J2270; J2405; J2543; J7030; J7050; J7120; Q9967; S0020; S0030; S0164

== ENCOUNTER 2019-03-21 15:13 | Inpatient (IN) ==
--- NOTE | 2019-03-21 15:54 | PROVIDER DOCUMENTATION ---
HPI-Abdominal Pain/GI Problem - General Chief Complaint: Post Op Complaint Stated Complaint: POST OP COMPLAINT Time Seen by Provider: 03/21/19 15:28 Source: patient Allergies/Adverse Reactions: Patient Allergies Allergy/AdvReac Type Severity Reaction Status Date / Time No Known Allergies Allergy Verified 03/03/19 14:50 Home Medications: Home Medication List Medication Instructions Recorded Confirmed Last Taken Type Estradiol 2 mg PO QHS 03/03/19 03/03/19 03/02/19 History Zolpidem Tartrate [Zolpidem 3.1 mg PO QHS 03/03/19 03/03/19 03/02/19 History Tartrate ER] Docusate Sodium [Colace] 100 mg PO BID #60 cap 03/06/19 Unknown Rx Hydrocodone/APAP 10 mg/325 mg 1 ea PO Q6H PRN #20 tab 03/06/19 Unknown Rx [[place]-10] Polyethylene Glycol 3350 [Miralax] 17 gm PO BID powder, packet 03/07/19 Unknown Rx - History of Present Illness-ABD Nature of Presenting Problems: [id number] presents to the ER with complaints abd pain and watery diarrhea. She states that she is 17 days post op from an exploratory lap with LUKAS from a SBO. She states that the pain she is feeling is the same pain as before her surgery. She states her last bowel movement was this morning and was "all water". She denies any fever, nausea or vomiting at this time. Abdominal Pain Onset Location: reports: LLQ Pain Radiation: reports: periumbilical Quality of Pain: reports: cramping, fullness Severity in ED: reports: moderate Onset/Duration: reports: last night Timing: reports: constant Activities at Onset: reports: none Exposure to sick contacts?: No Modifying Factors: improves with: nothing Associated Symptoms: reports: denies symptoms Last BM: this morning Dark Stools Present?: reports: none noticed Rectal Bleeding: reports: none # of Diarrhea Episodes: 1 (patient reports multiple episodes of watery diarrhea over a period of days) Rectal Pain: reports: none Bruising or Bleeding Gums?: No Similar Symptoms Previously?: Yes (similar symptoms prior to surgery) Recently seen or treated by another doctor?: Yes (Dr Amos) Review of Systems - Adult - REVIEW OF SYSTEMS - ADULT Constitutional: reports: see HPI. denies: chills, fever, fatique, night sweats, weight gain, weight loss, other Eyes: reports: no symptoms reported. denies: discharge, dry eyes, decreased vision, blurred vision, double vision, eye pain, redness, other Ears, Nose, Mouth & Throat: reports: no symptoms reported. denies: ear discharge, ear pain, hearing loss, tinnitus, epistaxis, sinus problem, nose pain, loose teeth, mouth/dental pain, mouth swelling, hoarseness, throat pain, throat swelling, other Cardiovascular: reports: no symptoms reported. denies: chest pain, edema, heart murmur, irregular heart rate, orthopnea, palpitations, poor circulation, PND, syncope, other Respiratory: reports: no symptoms reported. denies: chronic cough, cough, dyspnea on exertion, excessive sputum production, hemoptysis, pleurisy, shortness of breath, wheezing, other Gastrointestinal: reports: see HPI, abdominal pain, diarrhea, poor appetite. denies: hematemesis, constipation, difficulty swallowing, frequent heartburn, nausea, rectal bleeding, vomiting, other Genitourinary: reports: no symptoms reported. denies: dysuria, discharge, frequency, flank pain, frequent UTI's, hematuria, hesitency, incontinence, urinary retention, urgency, other Musculoskeletal: reports: no symptoms reported. denies: bone pain, back pain, frequent leg cramps, joint pain, joint swelling, muscle aches, muscle weakness, neck pain, other Integumentary: reports: no symptoms reported. denies: hives, hair loss, itching, mole changes, nail changes, rash, skin sores/ulcer, skin thickening, other Neurological: reports: no symptoms reported. denies: ataxia, dizziness/vertigo, headache/migraines, loss of balance, numbness, paresthesia, seizure, slurred speech, syncope, tremors, other Psychiatric: reports: no symptoms reported. denies: anxiety, anti-depressant use, alcohol/drug dependence, depression, emotional problems, insomnia, panic attacks, suicidal thoughts, other Endocrine: reports: no symptoms reported. denies: change in skin pigment, excessive sweating, goiter, cold intolerance, heat intolerance, increased hunger, increased thirst, polyuria, other Hematologic/Lymphatic: reports: no symptoms reported. denies: blood clots, easy bruising, low blood count, lymphedema, prolonged bleeding, swollen lymph nodes, transfusions, other Allergic/Immunologic: reports: no symptoms reported. denies: allergic leah ctions, allergic rhinitis, asthma, eczema, food allergy, frequent infections, hay fever, hives, positive PPD, urticaria, other All Other Systems: Reviewed and Negative Past History - Adult - PAST MEDICAL HISTORY-ADULT Review of Records: reports: Old Records Reviewed, Nursing Assessment Review, Medications Reviewed, Social history reviewed & non-contributory. Major Childhood Illnesses: reports: denies history Cardiovascular: reports: denies history Respiratory: reports: denies history Gastrointestinal: reports: denies history Obstetrical/Gynecological: reports: denies history Genitourinary: reports: denies history Musculoskeletal: reports: denies history Neurological: reports: denies history Psychiatric: reports: denies history Endocrine/Immune: reports: denies history Other Conditions: reports: denies history - PRIOR SURGERIES/PROCEDURES Surgical/Procedure History: reports: recent surgery (03/04/19-ex lap with LUKAS), appendectomy - IMMUNIZATION STATUS Childhood Immunizations: See Nurse Assessment Flu Vaccine: See Nurse Assessment - FAMILY HISTORY Family History: reviewed, not pertinent - SOCIAL HISTORY Smoking: denies Substance Use: none/never Alcohol Use Frequency: never Living Situation: family Physical Exam-General - PHYSICAL EXAM-ADULT Initial Vital Signs Reviewed: Yes - CONSTITUTIONAL General Appearance: appears well, alert, no apparent distress - EYES Eyes: PERRL/EOMI - HEAD, EARS, NOSE, MOUTH & THROAT HENMT: normocephalic/atraumatic, moist mucous membranes - NECK Neck: non-tender, full range of motion, supple - RESPIRATORY Respiratory: chest non-tender, lungs clear, normal breath sounds - CARDIOVASCULAR Cardiovascular: normal peripheral pulses, regular rate, rhythm - GASTROINTESTINAL (ABDOMEN) Abdominal Exam: normal bowel sounds, guarding, tenderness - LYMPHATIC Lymphatic: no adenopathy - MUSCULOSKELETAL Back Exam: normal inspection, no CVA tenderness Extremity: normal range of motion - SKIN Integumentary: normal color, normal turgor, other (healing SANGEETHA) - NEUROLOGIC Neurologic: grossly normal - PSYCHIATRIC Psych/Mental Status: normal mood/affect, normal thought content, normal thought process, oriented x 3 Progress - PLAN OF CARE/RESULTS Progress/Plan/Lab Results: Vital Signs - 8 hr 03/21/19 15:25 Temperature 98.6 F Pulse Rate 74 Respiratory Rate 18 Blood Pressure 125/82 O2 Sat by Pulse Oximetry 97 Orders Category Date Time Status CT ABDOMEN/PELVIS W/O CONTRAST [CT] Stat Exams 03/21/19 15:51 Ordered AMYLASE [CHEM] Stat Lab 03/21/19 15:51 Uncollected CBC WITH DIFF [HEME] Stat Lab 03/21/19 15:51 Uncollected COMPREHENSIVE METABOLIC PANEL [CHEM] Stat Lab 03/21/19 15:51 Uncollected LIPASE [CHEM] Stat Lab 03/21/19 15:[address] Phipps at 1735. Dr Phipps has requested admission to Hospitalist with consult for surgery. Result Diagrams: 03/22/19 05:18 03/22/19 05:18 - CT/MRI 1 CT Study: Abdomen, Pelvis Impression: Abnormal, See EMR Report (The current examination is compared with 03/03/2019. There is no evidence of acute disease in the visualized portion of the chest. The ascites which was present at the time the previous study is no longer present. There is no evidence of nephrolithiasis or hydronephrosis. The spleen adrenal glands and pancreas are grossly normal in appearance as is the liver. There are no apparent gallstones. There is fluid and gas in the colon without evidence of mucosal thickening. There is no evidence of small bowel obstruction. There is some fluid throughout the small bowel but the areas of the coastal thickening which were seen in loops in the pelvis is no longer present. There is a small amount of free fluid in the cul-de-sac. The urinary bladder is not particularly distended. There is bilateral spondylolysis at L5. There is no evidence of acute bony abnormality. IMPRESSION: Improved ascites and small bowel dilatation/mucosal thickening. The possibility of mild residual ileus cannot be excluded.) Comparison with other Films: changes noted CT Results: small bowel dilatation/mucosal thickening possibility of mild ileus - CONSULTS/PCP/HOSPITALIST Notification #1 *Consult/PCP/Hospitalist*: CRISTHIAN Bonilla/ [place] Time Discussed: 17:37 Consult Disposition: Admit #2 Consult: Moise Time Discussed: 17:35 Consult Disposition: Admit (Admit to hospitalist) Departure - Departure Date of Disposition Decision: 03/21/19 Time of Disposition Decision: 17:38 DIAGNOSIS: Postoperative ileus Abdominal pain Qualifiers: Abdominal location: left lower quadrant Qualified Code(s): R10.32 - Left lower quadrant pain Disposition: ADMITTED INPATIENT 09 Certified Medical Emergency: Emergent Condition: Good - Critical Care Note This patient required my direct & personal management of CC.: No Attestation - Physician/ ANDI Attestation Patient care was provided by Advanced Practice Provider:: Yes Advanced Practice Provider:: Fernandez Leyva Advanced Practice Provider documentation review:: The Mid-level provider documentation, treatment plan and medical decision making was reviewed by the physician who agrees with all treatment and medical decision making by the MLP. The physician spent face to face time with patient:: No Advanced Practice Provider documentation review:: Supervising physician onsite and consulted in the evaluation and care of this patient. The physician did not have a face to face encounter with the patient.
--- NOTE | 2019-03-21 16:16 | Diag Imaging Result Doc PS360 ---
EXAM: CT ABDOMEN/PELVIS W/O CONTRAST 03/21/2019 HISTORY: post op abd pain TECHNIQUE: This exam was performed using automated exposure control, adjustment of mA or kV according to patient size, and/or use of iterative reconstruction technique. COMMENT: The current examination is compared with 03/03/2019. There is no evidence of acute disease in the visualized portion of the chest. The ascites which was present at the time the previous study is no longer present. There is no evidence of nephrolithiasis or hydronephrosis. The spleen adrenal glands and pancreas are grossly normal in appearance as is the liver. There are no apparent gallstones. There is fluid and gas in the colon without evidence of mucosal thickening. There is no evidence of small bowel obstruction. There is some fluid throughout the small bowel but the areas of the coastal thickening which were seen in loops in the pelvis is no longer present. There is a small amount of free fluid in the cul-de-sac. The urinary bladder is not particularly distended. There is bilateral spondylolysis at L5. There is no evidence of acute bony abnormality. IMPRESSION: Improved ascites and small bowel dilatation/mucosal thickening. The possibility of mild residual ileus cannot be excluded. Electronically signed by Dawson Collazo 03/21/2019 4:14 PM
[2019-03-21 16:50] LABS: HEMOGLOBIN 14.6 g/dL (12.0-16.0); MCH 30.5 PG (27-31); MCHC 34.8 g/dL (33-37); MCV 87.9 FL (81-99); MPV 8.4 FL (7.4-10.4); NEUT% 58.4 % (42.2-75.2); PLT 436 X1000 (130-400); RBC 4.78 XMIL (4.2-5.4); WBC 7.76 X1000 (4.8-10.8)
[2019-03-21 16:51] LABS: BASO# 0.05 X1000 (0.0-0.2); BASO% 0.6 % (0.0-0.8); EOS# 0.49 X1000 (0.0-0.7); EOS% 6.3 % (0.0-10.0); LYMPH# 2.22 X1000 (1.2-3.4); LYMPH% 28.6 % (20.5-51.1); MONO# 0.47 X1000 (0.11-0.59); MONO% 6.1 % (1.7-9.3); NEUT# 4.53 X1000 (1.4-6.5)
[2019-03-21 17:10] LABS: AGAP 11; ALB/GLOB RATIO 1.5; ALBUMIN 4.9 g/dL (3.5-5.0); ALKALINE PHOSPHATASE 57 U/L (32-104); AMYLASE 111 U/L (20-200); BUN 8 mg/dL (8-22); CALCIUM 9.9 mg/dL (8.8-10.2); CHLORIDE 95 mmol/L (98-107); COSMO 270; CREATININE 0.8 mg/dL (0.5-0.9); ESTIMATED GFR > 60; GLUCOSE 95 mg/dL (70-104); GOT 17 U/L (10-30); GPT 18 U/L (10-36); LIPASE 36 U/L (13-60); POTASSIUM 3.9 mmol/L (3.5-5.1); SODIUM 136 mmol/L (136-145); TCO2 30 mmol/L (25-35); TOTAL BILIRUBIN 0.44 mg/dL (0.20-1.00); TOTAL PROTEIN 8.2 g/dL (6.3-8.3)
[2019-03-21] MEDS ORDERED: ZOFRAN IV PRN (18:15)
--- NOTE | 2019-03-21 18:50 | HISTORY AND PHYSICAL ---
PRIMARY CARE PHYSICIAN: Dr. Michael Roth. CHIEF COMPLAINT: Abdominal pain and diarrhea. HISTORY OF PRESENT ILLNESS: Ms. Roa is a 43-year-old female with no medical problems who was discharged from our service on 03/11/2019 status post exploratory laparotomy and lysis of adhesions due to small bowel obstruction. The surgical procedure was tolerated well without any issues. She convalesced well and was discharged on postoperative pain medication. She has been essentially in her normal state of health until she started having left lower quadrant abdominal pain and multiple episodes of diarrhea today, which she reports is only watery stool. She did have some nausea yesterday but no vomiting whatsoever. She denies any fever or chills. No chest pain. No back pain. No dysuria. She came to the ER today. Labs were done and were found to be normal with the exception of a platelet count of 436. Her vital signs have been stable. A CT of the abdomen and pelvis did show improved ascites and small bowel dilatation and mucosal thickening, and the possibility of mild residual ileus could not be excluded. She will be admitted for observation status. PAST MEDICAL HISTORY: Recent small bowel obstruction status post exploratory laparotomy with lysis of adhesions. PAST SURGICAL HISTORY: She has had an appendectomy, hysterectomy, tonsillectomy, and lysis of adhesions in the past. SOCIAL HISTORY: She smokes 1 to 2 cigarettes a day. She denies illicit drug use. She drinks occasionally on the weekends. She is . Her ex- is at the bedside. They have 4 children. 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 ALLERGIES: No known drug allergies. HOME MEDICATIONS: 1. Estradiol 2 mg daily. 2. Ambien 12.5 mg p.o. at bedtime p.r.n. insomnia. REVIEW OF SYSTEMS: A 14-point review of systems was obtained and found to be negative with the exception of the HPI. PHYSICAL EXAMINATION: VITAL SIGNS: Blood pressure 125/82, heart rate 74, respiratory rate 18, oxygen saturation 97% on room air. Temperature 98.6 degrees. GENERAL: A well-developed, well-nourished, 43-year-old female lying in the hospital bed in no acute distress. NEUROLOGIC: She is awake, alert and oriented. She follows commands. No focal deficits. HEENT: Head is atraumatic, normocephalic. Pupils equal, round and reactive to light. Oral mucosa is moist. NECK: Trachea is midline. There is no JVD. CHEST: Clear to auscultation bilaterally. CARDIOVASCULAR: Regular rate and rhythm. S1, S2 is noted. There are no murmurs. GI: Soft, nondistended. She does have some left lower quadrant tenderness to palpation. Bowel sounds are hyperactive. Surgical incision clean, dry and intact. EXTREMITIES: Without edema, clubbing or cyanosis. Pulses 2+ bilaterally. DIAGNOSTIC DATA: Laboratory data reviewed. WBC 7.76, hemoglobin 14.6, hematocrit 42, platelet count 436. Sodium 136, potassium 3.9, chloride 95, CO2 of 30, anion gap 11, BUN 8, creatinine 0.8, glucose 95. LFTs negative. Lipase 36. CT abdomen and pelvis shows improved ascites and small bowel dilatation mucosal thickening, possibility of mild residual ileus cannot be excluded. ASSESSMENT AND PLAN: 1. Abdominal pain with diarrhea: Clinically, the patient does not have an ileus, she is having bowel movements and hyperactive bowel sounds are noted. Given the recent abdominal surgery, we will go ahead and consult Dr. Phipps, but this is unlikely to be related to the surgery itself. We will check stool studies, hydrate and keep her NPO. 2. Nicotine dependence: We have advised nicotine cessation, we will write a nicotine patch and continue daily cessation education. 3. DVT prophylaxis with sequential compression devices/TEDs. Further recommendations to follow. Patient seen and examined by me face to face, all the laboratory, images and vital signs were reviewed, patient presented to the emergency department complaining of abdominal pain, that started this morning, she recently had a bowel obstruction with lysis of adhesion, she seem to be stable, on my exam she has hyperactive bowel sounds even though images showed some ileus, ED Department contacted surgery since she stated that those symptoms were about the same when she had the obstruction, and they asked for admission, I agree with the TRANSPORTATION ANALYST' assessment and plan, Celestino Edmondson MD. Dictated by CRISTHIAN Us for Celestino Rock MD cc: CRISTHIAN Us MD [facility]
[2019-03-21] MEDS ORDERED: COLACE PO SCH (21:00)
[2019-03-21] MEDS: ESTRACE PO SCH (21:03)
[2019-03-21] MEDS: AMBIEN PO SCH (23:19)
[2019-03-21] MEDS: DULCOLAX PR SCH (23:20)
[2019-03-21] MEDS: NICODERM PATCH TD SCH (23:20)
[2019-03-22] MEDS ORDERED: MORPHINE IV ONE (01:55)
[2019-03-22] MEDS: NS 1,000 ML IV SCH ×3 (04:51→17:10)
[2019-03-22 06:24] LABS: BASO# 0.05 X1000 (0.0-0.2); BASO% 0.8 % (0.0-0.8); EOS# 0.61 X1000 (0.0-0.7); EOS% 9.9 % (0.0-10.0); HEMATOCRIT 37.1 % (37.0-47.0); HEMOGLOBIN 12.4 g/dL (12.0-16.0); LYMPH# 2.44 X1000 (1.2-3.4); LYMPH% 39.4 % (20.5-51.1); MCH 30.2 PG (27-31); MCHC 33.4 g/dL (33-37); MCV 90.3 FL (81-99); MONO# 0.47 X1000 (0.11-0.59); MONO% 7.6 % (1.7-9.3); MPV 8.5 FL (7.4-10.4); NEUT# 2.62 X1000 (1.4-6.5); NEUT% 42.3 % (42.2-75.2); PLT 388 X1000 (130-400); RBC 4.11 XMIL (4.2-5.4); RDW 12.1 % (11.5-14.5); WBC 6.19 X1000 (4.8-10.8)
[2019-03-22 06:50] LABS: AGAP 11; ALB/GLOB RATIO 1.5; ALKALINE PHOSPHATASE 46 U/L (32-104); BUN 9 mg/dL (8-22); CHLORIDE 106 mmol/L (98-107); COSMO 281; CREATININE 0.7 mg/dL (0.5-0.9); ESTIMATED GFR > 60; GLUCOSE 88 mg/dL (70-104); GOT 13 U/L (10-30); GPT 13 U/L (10-36); POTASSIUM 4.4 mmol/L (3.5-5.1); SODIUM 142 mmol/L (136-145); TCO2 25 mmol/L (25-35); TOTAL BILIRUBIN 0.46 mg/dL (0.20-1.00); TOTAL PROTEIN 6.6 g/dL (6.3-8.3)
--- NOTE | 2019-03-22 07:44 | Diag Imaging Result Doc PS360 ---
EXAM: KUB ABDOMEN 03/22/2019 HISTORY: ileus TECHNIQUE: KUB COMMENT: There is gas throughout much of the colon. The small bowel and stomach are not distended. Compared to 03/07/2019, other than resolution of the postsurgical pneumoperitoneum, there has been little change. IMPRESSION: Nonspecific abdomen. Electronically signed by Dawson Collazo 03/22/2019 7:41 AM
[2019-03-22] MEDS: DULCOLAX PR SCH (08:39)
[2019-03-22] MEDS: NICODERM PATCH TD SCH (08:40)
--- NOTE | 2019-03-22 08:51 | GENERAL SURGERY CONSULTATION ---
DATE: 03/21/2019 HISTORY OF PRESENT ILLNESS: This is a 43-year-old female who was operated on by Dr. 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 She did okay from that. However, starting over the last day or 2, she has developed some similar colicky pain in the lower abdomen with diarrhea, some nausea but no vomiting. No fevers. No blood in her stools. She came the ER where CT scan was obtained that was suggestive of possible ileus, but no evidence of acute ischemia or perforation. She was admitted for IV hydration, antiemetics and pain control. MEDICAL HISTORY: Negative. SURGICAL HISTORY: She has had appendectomy, hysterectomy, as well as an exploratory laparotomy by Dr. Amos. SOCIAL HISTORY: Light cigarette use. No drugs. Occasional alcohol. She is . Does have 4 children. REVIEW OF SYSTEMS: Ten point negative. FAMILY HISTORY: Reviewed and noncontributory. OBJECTIVE: General: She is afebrile, pulse 60, blood pressure 131/80, oxygen 90%. General: She is alert. HEENT: No scleral icterus. No cervical mass. Cardiovascular: Normal rate. Pulmonary: No increased work of breathing. Abdomen: Soft, nontender, nondistended. Integument: Warm and dry. She does have midline incisions that are well healed. Psychiatric: Appropriate affect. Neurologic: No gross deficits. Peripheral vascular: No lower extremity edema. LABORATORY DATA: White count 7, hematocrit 42, platelets 436,000. Creatinine 0.8. LFTs are normal. Lipase normal. I reviewed her CT. ASSESSMENT AND PLAN: A 43-year-old female with diarrhea following exploratory laparotomy and vague abdominal discomfort. Clostridium difficile is negative. She had stool cultures that are pending. It is possibly that this is an enteritis, possibly was just dehydration following surgery. We will continue IV fluids, antiemetics, serial exams and follow her closely. I do not see an acute surgical indication at this juncture. cc: Lucero Phipps MD
[2019-03-22] MEDS: TYLENOL PO PRN (11:31)
--- NOTE | 2019-03-22 12:08 | PROGRESS NOTE ---
DATE: 03/22/2019 SUBJECTIVE: As per the patient, she has been having multiple bowel movements during the night, her abdomen is not distended, she is having positive bowel sounds. Abdominal x-ray is nonspecific. There is gas throughout much of the colon. The small bowel and stomach are not distended. No nausea, no vomiting. OBJECTIVE: Vital Signs: Temperature 98.5 degrees, pulse 67, respiratory rate 16, blood pressure 96/49. Oxygen saturation 95% on room air. HEENT: Head normocephalic, no trauma, PERRLA. Neck: Supple. No JVD. No masses. Central trachea. Chest: Clear to auscultation. No wheezing. No rales. Abdomen: Soft, mild tenderness to palpation. Nondistended. Positive bowel sounds. Yesterday, they were hyperactive compared with today. She has a scar from previous hospitalization that looks fine. No signs of infection. Extremities: No edema, no clubbing, no cyanosis. Neurological: The patient is alert and oriented x3. No focal deficits. LABORATORY: WBC 6.1, hemoglobin 12.4, hematocrit 37.1, platelets 388,000. Sodium 142, potassium 4.4, chloride 106, bicarbonate 25, BUN 9, creatinine 0.7, glucose 88, calcium 9, AST 13, ALT 13, alkaline phosphatase 46, albumin 4. ASSESSMENT AND PLAN: 1. Diarrhea, following exploratory laparotomy with abdominal discomfort, she is still having multiple bowel movements. We will continue with the IV fluids. Electrolytes are within normal limits, bowel sounds are present and better compared with yesterday. Yesterday, were hyperactive, no abdominal distention. 2. Nicotine dependence. This patient has been highly advised against tobacco use. I will continue with daily cessation education. 3. Deep vein thrombosis prophylaxis with SCDs. cc: Celestino Rock MD
--- NOTE | 2019-03-22 20:32 | GENERAL SURGERY PROGRESS NOTE ---
DATE: 03/22/2019 SUBJECTIVE: She states she feels a lot better. No more pain. Diarrhea is improved. No fevers, no tachycardia overnight. LABS: In review: White count 6, hematocrit 37. Creatinine 0.7. C difficile is negative as well as her stool cultures and ova and parasite. ASSESSMENT AND PLAN: A 43-year-old female with apparent gastroenteritis, possibly some degree of ileus, although given the diarrhea, suspect a more enteritis type picture. Her exam remains benign. She is soft, nontender, nondistended. No jaundice. I reviewed her labs. We will give her clear liquids. Continue hydration, antiemetics and advance her diet tomorrow. cc: Lucero Phipps MD
[2019-03-22] MEDS: ESTRACE PO SCH (20:43)
[2019-03-22] MEDS: AMBIEN PO SCH (22:25)
[2019-03-23] MEDS: DULCOLAX PR SCH ×2 (00:39→08:42)
[2019-03-23] MEDS: NS 1,000 ML IV SCH ×3 (01:35→21:36)
[2019-03-23] MEDS: TYLENOL PO PRN ×2 (08:41→16:17)
[2019-03-23] MEDS: NICODERM PATCH TD SCH (08:42)
--- NOTE | 2019-03-23 09:40 | GENERAL SURGERY PROGRESS NOTE ---
DATE: 03/23/2019 SUBJECTIVE: Patient seems to be doing okay. She is feeling better. Reviewed notes from admission. Reviewed her CT scan. Reviewed her abdominal film. She is having bowel movements. She is tolerating clear liquids. OBJECTIVE: Vital Signs: Patient is currently afebrile. Her vital signs are stable. General: No acute distress. HEENT: Normocephalic, atraumatic. Pupils equal, round, reactive to light. Mucous membranes moist, oropharynx benign. Neck: Supple. Trachea midline. Cardiovascular: Regular rate and rhythm. Lungs: Grossly clear. Abdomen: Soft, nondistended, nontender. Incision is healing well. Extremities: Moves all extremities. Neurologic: Grossly intact. Skin: No signs of jaundice. Vascular: All extremities perfused. LABORATORY DATA: Reviewed. ASSESSMENT AND PLAN: 43-year-old female who is status post exploratory laparotomy with lysis adhesion, now with likely gastroenteritis with diarrhea. 1. Gastroenteritis with diarrhea. At this time, clinically, patient seems to be improving. We will advance to a regular diet. She is not tender. She is feeling better. 2. She will likely need some degree of an outpatient workup with esophagogastroduodenoscopy and colonoscopy, which I can do when I see her back in the office. 3. I think we are close to being able to have her discharged. cc: Bulmaro Amos MD
--- NOTE | 2019-03-23 10:36 | PROGRESS NOTE ---
DATE: 03/23/2019 SUBJECTIVE: She is still having diarrhea, but the frequency is much less. Her abdomen is benign. Hyperactive bowel sounds. OBJECTIVE: Vital Signs: Temperature 98.2 degrees, pulse 51, respiratory rate 16, blood pressure 115/67, oxygen saturation 100% on room air. HEENT: Head normocephalic. No trauma. PERRLA. Neck: Supple. No JVD. No masses. Central trachea. Chest: Clear to auscultation. No wheezing. No rales. Abdomen: Soft. Mild tenderness to palpation at the level of the periumbilical area close to the surgical scar. Nondistended. Positive bowel sounds. Slightly hyperactive. She has a scar from previous hospitalization that looks fine. No signs of infection. Extremities: No edema, no clubbing, no cyanosis. Neurological: The patient is alert and oriented x3. No focal deficits. LABORATORY DATA: No lab work done today. Laboratory from yesterday within normal limits. ASSESSMENT AND PLAN: 1. Diarrhea, likely gastroenteritis, following exploratory laparotomy at the beginning of this month. She seems to be improving. Her abdomen is benign. She has been having less diarrhea. Once Surgery Department clears this patient for discharge, I will send her home. 2. Nicotine dependence. This patient has been highly advised against tobacco use. I will continue with daily cessation education. 3. Mild bradycardia, asymptomatic. 4. Deep vein thrombosis prophylaxis with sequential compression devices. cc: Celestino Rock MD
[2019-03-23] MEDS: AMBIEN PO SCH (21:36)
[2019-03-23] MEDS: ESTRACE PO SCH (21:36)
[2019-03-24 06:10] LABS: BASO# 0.03 X1000 (0.0-0.2); BASO% 0.4 % (0.0-0.8); EOS# 0.73 X1000 (0.0-0.7); EOS% 10.4 % (0.0-10.0); HEMOGLOBIN 10.5 g/dL (12.0-16.0); LYMPH# 2.67 X1000 (1.2-3.4); MCH 30.3 PG (27-31); MCHC 33.9 g/dL (33-37); MCV 89.6 FL (81-99); MONO# 0.58 X1000 (0.11-0.59); MONO% 8.3 % (1.7-9.3); MPV 8.7 FL (7.4-10.4); NEUT# 3.02 X1000 (1.4-6.5); NEUT% 42.9 % (42.2-75.2); PLT 318 X1000 (130-400); RBC 3.46 XMIL (4.2-5.4); RDW 11.9 % (11.5-14.5); WBC 7.03 X1000 (4.8-10.8)
[2019-03-24 06:56] LABS: AGAP 9; BUN 9 mg/dL (8-22); CHLORIDE 109 mmol/L (98-107); COSMO 279; CREATININE 0.7 mg/dL (0.5-0.9); ESTIMATED GFR > 60; GLUCOSE 84 mg/dL (70-104); POTASSIUM 3.7 mmol/L (3.5-5.1); SODIUM 141 mmol/L (136-145); TCO2 23 mmol/L (25-35)
[2019-03-24 07:16] VITALS: BP 122/72
[2019-03-24] MEDS: NS 1,000 ML IV SCH (08:16)
[2019-03-24] MEDS: TYLENOL PO PRN (08:16)
[2019-03-24] MEDS: NICODERM PATCH TD SCH (08:19)
--- NOTE | 2019-03-24 11:09 | GENERAL SURGERY PROGRESS NOTE ---
DATE: 03/24/2019 SUBJECTIVE: Patient doing okay, tolerating a regular diet. OBJECTIVE: Vital Signs: Patient is currently afebrile. Her vital signs are stable. General: No acute distress. Cardiovascular: Regular rate and rhythm. Lungs: Grossly clear. Abdomen: Soft, nontender, nondistended. Incision healing well. ASSESSMENT AND PLAN: A 43-year-old female who is status post exploratory laparotomy with lysis of adhesions, now with likely gastroenteritis. Gastroenteritis with diarrhea. At this time, patient is tolerating regular diet. From a surgical point of view, I think she can be discharged. She can see me back in the office in 1 to 2 weeks and we can discuss colonoscopy. cc: Bulmaro Amos MD
--- NOTE | 2019-03-25 16:20 | DISCHARGE SUMMARY ---
ADMISSION DATE: 03/21/2019 DISCHARGE DATE: 03/24/2019 DISCHARGE DIAGNOSES: 1. Abdominal pain with diarrhea, resolved. 2. Nicotine dependence. 3. Mild bradycardia, resolved. CONSULTATIONS: Dr. Bulmaro Amos from General Surgery. PROCEDURES: Abdomen and pelvis CT showed improved ascites and small bowel dilatation and mucosal thickening and the possibility of mild residual ileus cannot be excluded. HOSPITAL COURSE: This is a 43-year-old female with no past medical history who was recently discharged from our service at the beginning of March status post exploratory laparotomy and lysis of adhesions due to small bowel obstruction. Basically the patient came to the hospital complaining of left lower quadrant abdominal pain and multiple episodes of diarrhea. Because of her recent history of surgery and the suggestion of possible ileus, she was admitted to the hospital. She was placed on IV fluids, pain medications, medication for nausea and vomiting. We have consulted Dr. Amos, who is her primary surgeon. The patient was improving, feeling fine. Denies any fever or chills. Her bowel movements started getting better. So, at this time, she is tolerating a GI soft diet and I think she can be discharged in stable condition. DISCHARGE PHYSICAL EXAMINATION: Vital signs: Temperature 98.3 degrees, heart rate 51, respiratory rate 16, blood pressure 122/72, O2 saturation 99% on room air. General examination: This is a 43-year-old female lying in bed, in no acute distress. Cardiovascular: S1, S2 heard. No murmurs, gallops, or rubs. Regular rate and rhythm. Respiratory: Clear bilaterally to auscultation. No work of breathing or using accessory muscles. Abdomen: Soft. Nontender to palpation. Bowel sounds present. No organomegaly. Extremities: No clubbing, cyanosis, or edema. Peripheral pulses present in both legs. Neurological: Patient is alert and oriented x3. Moves 4 extremities. DISCHARGE DISPOSITION: Home to self-care. FOLLOW UP: Follow up with her primary surgeon, Dr. Amos, in a week. cc: Kobe Corona MD
== END 2019-03-24 14:22 | disposition home or self-care (01) | DRG 392 ==
LOC: ED 15:13 → 4N 18:36 → INTOOBSV 18:36 → OBSVTOIN 18:36 → SUATTDRO 18:36
PROVIDERS: ATTEND Internal Medicine
CPT/HCPCS: 74000; 74018; 74176; 80048; 80053; 82150; 83690; 85025; 87045; 87046; 87177; 87205; 87324; 87449; 88313; 89055; 99285; A9270; G0378; J7030